=== PATIENT | female | born 1990 | race Caucasian/White ===

== ENCOUNTER 2017-03-08 13:24 | Emergency (ER) | payer OTHER ==
[~2017-03-08 13:24] MED LIST: ABILIFY; ALBUTEROL17 GM; DEPAKOTE
== END 2017-03-08 14:34 | disposition home or self-care (01) ==
LOC: CFTX 13:24
DX: J06.9 Acute upper respiratory infection, unspecified (principal); J45.909 Unspecified asthma, uncomplicated; F17.210 Nicotine dependence, cigarettes, uncomplicated
CPT/HCPCS: 87651; 99283